=== PATIENT | female | born 1950 | race Two or more races ===

== ENCOUNTER 2021-10-01 05:45 | Day surgery (SDC) | payer OTHER ==
[~2021-10-01] VITALS: Ht 157.5 cm; Wt 67.1 kg
[~2021-10-01 05:45] MED LIST: CLARITIN10 M1 PO; COZAAR100 MG PO; DICY20TA PO; HORIZANT600 MG PO; PEPCID PO; PROTONIX40 MG PO; TENORMIN50 M1 PO
[2021-10-01] MEDS ORDERED: CILOXAN5 ML OTIC (09:27)
[2021-10-01] MEDS ORDERED: CEPHALEXIN500 MG PO (09:27)
== END 2021-10-01 11:30 | disposition home or self-care (01) ==
LOC: CIR.AMB 05:45
PROVIDERS: ATTEND Otolaryngology Otology & Neurotology
DX: H90.A11 Conductive hearing loss, unilateral, right ear with restricted hearing on the contralateral side (principal); H74.21 Discontinuity and dislocation of right ear ossicles; H73.811 Atrophic flaccid tympanic membrane, right ear; I10 Essential (primary) hypertension; J45.909 Unspecified asthma, uncomplicated; K21.9 Gastro-esophageal reflux disease without esophagitis